=== PATIENT | female | born 1965 | race Caucasian/White ===

== ENCOUNTER 2019-05-11 07:56 | Emergency (ER) | payer MEDICAID ==
[~2019-05-11] VITALS: Ht 152.4 cm; Wt 62.7 kg
[2019-05-11 07:57] VITALS: BP 109/74
[2019-05-11] MEDS ORDERED: acetaminophen 325mg tablet PO ONE (08:20)
[2019-05-11] MEDS ORDERED: aspirin 325mg tablet PO ONE (08:20)
[2019-05-11] MEDS ORDERED: oxyCODONE/APAP 5-325mg tablet PO ONE (08:20)
[2019-05-11] MEDS ORDERED: OXYC-145 PO (08:20)
[2019-05-11] MEDS ORDERED: CYCL-1 PO (08:20)
== END 2019-05-11 08:31 | disposition home or self-care (01) ==
LOC: ER 07:56
DX: M54.5 Low back pain (principal); G89.29 Other chronic pain; Z88.0 Allergy status to penicillin; Z88.6 Allergy status to analgesic agent; Z88.5 Allergy status to narcotic agent; Z91.048 Other nonmedicinal substance allergy status; Z79.899 Other long term (current) drug therapy
CPT/HCPCS: 99284